=== PATIENT | female | born 1935 | race Caucasian/White ===

== ENCOUNTER → 2016-08-27 | Outpatient (CLI) | payer OTHER ==
[2016-08-27 13:04] LABS: RED BLOOD COUNT 4.41 M/UL (4.00-5.10); WHITE BLOOD COUNT 5.5 K/UL (4.5-11.0)
[2016-08-27 13:21] LABS: BUN/CREATININE RATIO 19 (0-10)
== END ==
LOC: OPSV2 11:30 → EDSTATUS 13:30 → OPSV2 13:30
PROVIDERS: Orthopaedic Surgery
DX: Z01.810 Encounter for preprocedural cardiovascular examination (principal); Z01.812 Encounter for preprocedural laboratory examination; Z01.818 Encounter for other preprocedural examination; M17.11 Unilateral primary osteoarthritis, right knee
CPT/HCPCS: 36415; 71020; 80048; 81001; 85025; 87081; 93005

== ENCOUNTER → 2016-09-02 | Outpatient (CLI) | payer OTHER ==
[2016-09-02 14:34] LABS: BUN/CREATININE RATIO 17 (0-10)
== END ==
LOC: LAB 13:19
PROVIDERS: Orthopaedic Surgery
DX: Z01.812 Encounter for preprocedural laboratory examination (principal)
CPT/HCPCS: 36415; 80048; 86850; 86900; 86901

== ENCOUNTER → 2021-12-26 | Outpatient (CLI) | payer MEDICARE ==
[~2021-12-26] MED LIST: COD LIVER OIL1 ML MC; DRAMAMINE LESS25 MG PO; ECOTRIN81 MG PO; ELIQUIS2.5 MG PO; GINKGO BILOBA120 MG PO; GINSENG250 MG PO; NORCO 5-325 TA1 EACH PO; PREDNISONE10 MG PO; TUMERIC; VITAMIN B COMP1 EACH PO; VITAMIN B-122000 MCG PO; VITAMIN B-1250 MG PO; VITAMIN B6100 MG/2.5 PO; VITAMIN C1000 MG PO; VITAMIN D310 MCG PO; VITAMIN D3125 MCG PO
[2021-12-26 13:25] LABS: RED BLOOD COUNT 4.16 M/UL (4.00-5.10); WHITE BLOOD COUNT 5.6 K/UL (4.5-11.0)
[2021-12-26 14:03] LABS: BUN/CREATININE RATIO 24 (0-10)
== END ==
LOC: OPSV2 12:12 → EDSTATUS 12:30 → OPSV2 12:30
PROVIDERS: Orthopaedic Surgery
DX: Z01.818 Encounter for other preprocedural examination (principal); M17.11 Unilateral primary osteoarthritis, right knee; R00.1 Bradycardia, unspecified
CPT/HCPCS: 71046; 80048; 85027; 93005